=== PATIENT | male | born 1930 | race Caucasian/White ===

== ENCOUNTER 2016-09-01 13:52 | Outpatient (CLI) | payer MEDICARE, OTHER ==
[~2016-09-01] VITALS: Ht 175.3 cm; Wt 81.8 kg
[2016-09-01 14:54] VITALS: BP 124/53; Ht 175.3 cm; Wt 81.8 kg
== END 2016-09-01 15:05 | disposition home or self-care (01) ==
LOC: D.OPS 13:52
DX: M54.16 Radiculopathy, lumbar region (principal)